=== PATIENT | female | born 2000 | race Two or more races ===

== ENCOUNTER 2024-08-03 09:55 | Observation (INO) | payer MEDICAID, SELFPAY ==
[2024-08-03 10:13] VITALS: BP 110/70; PULSE 92
[2024-08-03 10:14] VITALS: TEMP 37; BMI 24.4
[2024-08-03 10:52] VITALS: BP 110/70; PULSE 92; RESP 18; RESP 99; TEMP 37
== END 2024-08-03 11:00 | disposition home or self-care (01) ==
PROVIDERS: Admitting Provider Nurse Practitioner Women's Health; Visit Provider Nurse Practitioner Women's Health
DX: O26.893 Other specified pregnancy related conditions, third trimester (principal); R25.2 Cramp and spasm; Z3A.37 37 weeks gestation of pregnancy
CPT/HCPCS: 59025; 59899

== ENCOUNTER 2024-08-13 02:35 | Inpatient (IN) | payer MEDICAID, SELFPAY ==
[2024-08-13] VITALS (23 sets, daily range): BP systolic 0–125; BP diastolic 0–87; PULSE 70–92; RESP 16–97; TEMP 36.4–37.2; O2SAT 97–98; BMI 24.5
[2024-08-13] MEDS: OXYTOCIN in NS 20 units 20 UNIT/1,000 ML BAG 125 UNIT IV (04:11)
[2024-08-13] MEDS: METHYLERGONOVINE INJ 0.2 MG/ML VIAL IM (04:17)
[2024-08-13 04:23] LABS: Basophils # (Auto) 0.1 Thou/mm3 (0.0-0.2); Basophils % (Auto) 1 % (0-2.5); Eosinophils # (Auto) 0.1 Thou/mm3 (0.0-0.5); Eosinophils % (Auto) 1 % (0-10); Hematocrit 36.5 % (36.0-46.0); Hemoglobin 12.3 g/dL (12.0-16.0); Immature Granulocytes % (Auto) 1 % (0-0); Immature Granulocytes Auto 0.07 Thou/mm3 (0.00-0.00); Lymphocytes # (Auto) 3.2 Thou/mm3 (1.0-4.8); Lymphocytes % (Auto) 27 % (10-50); Mean Corpuscular HGB Conc 33.7 g/dl (31.0-37.0); Mean Corpuscular Hemoglobin 29.2 pg (25.0-35.0); Mean Corpuscular Volume 87 fL (80-100); Monocytes % (Auto) 9 % (0-12); Neutrophils # (Auto) 7.5 Thou/mm3 (1.8-7.7); Neutrophils % (Auto) 63 % (37-80); Nucleated Red Blood Cell % 0 /100 WBC (0); Platelet Count 270 Thou/mm3 (140-440); RDW Standard Deviation 41.8 fL (36.4-46.3); Red Blood Count 4.21 Miln/mm3 (4.00-5.20)
[2024-08-13 04:51] LABS: Syphilis Nonreactive (Nonreactive)
--- NOTE | 2024-08-13 05:13 | PD.LDHP ---
Documentation for date of: 08/13/24 OB Labor/Induct. HPI History of Present Illness : 2 Para: 1 Term pregnancies: 1 pregnancies: 1 Living children: 1 History of Abortions: Spontaneous and Elective: 1 History of Vaginal deliveries: 1 History of sections: No History of : No History of present illness: Patient presents with regular/painful ctx. No LOF, no vaginal bleeding. Feels normal movement. History of Present Adequate Care: Yes Labs Labs: Negative: Hepatitis B, HIV, Chlamydia, Gonorrhea and Group Beta Strep Review of Systems Review of Systems Narrative Review of Systems: Review of Systems Systems Reviewed: All systems reviewed, normal except as documented Constitutional Constitutional: Denies body ache(s), Denies chills, Denies fever(s) and Denies headache(s) ENT Ears, Nose, Mouth, and Throat: Denies headache(s) and Denies vertigo Cardiovascular Cardiovascular: Denies chest pain, Denies palpitations, Denies dyspnea and Denies syncope Respiratory Respiratory: Denies cough, Denies dyspnea Gastrointestinal Gastrointestinal: Denies nausea and Denies vomiting Neurologic Neurologic: Denies convulsions, Denies headache(s), Denies other visual disturbances, Denies syncope and Denies vertigo Past Medical History Surgical History SURGICAL: Negative Section OTHER SURGICAL HX: denies all Social History SOCIAL: No tobacco/ETOH/illicit drug use Past Medical History Comments PMH COMMENT: benign. allergic to motrin (rash) Meds Home Medications and Allergies Home Medications ?Medication ?Instructions ?Recorded ?Confirmed ?Type folic acid 1 mg tablet 1 mg PO DAILY 05/17/24 08/13/24 History [id number] 1 mg 1 tab PO DAILY 05/17/24 05/17/24 History tablet Allergies Allergy/AdvReac Type Severity Reaction Status Date / Time ibuprofen Allergy Rash Verified 08/13/24 03:12 OB Exam Physical Exam Vital signs: Temp Pulse Resp BP Pulse Ox 98.1 F 72 17 118/82 98 08/13/24 03:56 08/13/24 05:08 08/13/24 02:48 08/13/24 05:08 08/13/24 02:54 Narrative: General: well developed, well nourished, no acute distress, conversant Cardiac: normal heart rate Lungs: breathing without distress Abdomen: soft, gravid, non-tender, no rebound or guarding Extremities: no pain with palpation of calves Detailed Labor and Delivery Exam Dilation (cm): 8 Effacement (%): 80 Cervix position: anterior station: -2 Consistency: soft Presentation: Vertex Membranes: intact monitor accelerations: 15x15 monitor decelerations: None halfway variability: Moderate (11-25) Contraction frequency (min): q3-5 min OB Results Labs 08/13/24 03:00 Labs: Short CBC 08/13/24 Range/Units 03:00 WBC 12.0 H (3.6-11.0) Thou/mm3 Hgb 12.3 (12.0-16.0) g/dL Hct 36.5 (36.0-46.0) % Plt Count 270 (140-440) Thou/mm3 OB Assessment & Plan Assessment and Plan (1) Active labor at term: Status: Acute Assessment and plan: Patient is a 24yo with SIUP at term presenting in active labor. Regular/painful contractions, SCE:8/80/-2. Vitals wnl, benign exam. Reassuring assessment. PMhx/ uncomplicated. Labs significant only for SMA (SMN1) at risk to be a carrier - defer to OBGYN office for further management of this lab finding. Plan: -Admit to L&D -Establish IV, routine labs -CEFM -Clear liquid diet -Configurator/consent re: -GBS status: negative -Anticipate -Safe to proceed
--- NOTE | 2024-08-13 05:14 | PD.LDDELS ---
Data ([facility]) Data Hx Section: No : 3 Para: 1 Term: 0 : 1 : 1 Delivery Data ([facility]) Labor Data Stimulated/Augmented: Yes Method: AROM ROM Date: 08/13/24 ROM Time: 03:32 Rupture Type: AROM Amniotic Fluid: Clear Delivery Data Labor Onset Stage 1 Date: 08/13/24 Labor Onset Stage 1 Time: 00:30 Labor Onset Stage 2 Date: 08/13/24 Labor Onset Stage 2 Time: 04:00 Delivery Date: 08/13/24 Delivery Time: 04:07 Placenta Delivery Date: 08/13/24 Placenta Delivery Time: 04:11 Delivered by: Vaishali Tidwell Delivery nurse: Yudy Kang Other staff at delivery: Nursery Nurse Other staff at delivery: 2nd Nurse Other staff at delivery: RT Other staff at delivery: Sandra Barker Other staff at delivery: Carmita Chadwick Other staff at delivery: mich Delivery Method Delivery: Vaginal Delivery Type: Spontaneous Anesthesia Type Primary Anesthesia: None EBL Estimated blood loss (ml): 200 Umbilical Cord Nuchal Cord: x1 Additional Procedures Kaity is a 24yo [id number] s/p uncomplicated at term after presenting in active labor, delivering at 0407 on 08/13/2024. On presentation, SCE was 8cm. She progressed quickly after AROM to C/C/0 at which point she began pushing. She declined epidural. With good maternal pushing efforts, infant's head delivered OA and restituted ZOEY. Snug nuchal cord reduced. Left anterior shoulder delivered easily followed by posterior shoulder and corpus. Infant had spontaneous cry and was vigorous. Apgars 9/9. Infant placed on maternal abdomen where nose/mouth were suctioned and dried/stimulated. After approximately 1 minute, cord was clamped x2 and cut by FOB. Cord blood collected for typing. With fundal massage and cord traction, placenta delivered spontaneously and intact with 3 vessel centrally inserted cord. Bimanual massage performed and IV pitocin given per protocol with fundus then firm at u-2cm and hemostasis noted. Inspection of perineum and vagina revealed no lacerations. Small trickle of blood, so sweep just within cervix/MARCE performed which retrieved a small amount of clot. 0.2mg IM methergine given with observed hemostasis after. All counts correct x2. Mom and infant were doing well when I left the room. Vaishali Tidwell MD Complications Complications: none Data ([facility]) Data Infant Gender: Male Identification Band Number: [id number] Infant Weight Grams: 2545 1 Minute Total: 9 5 Minute Total: 9
[2024-08-13] MEDS: BENZO/LANO/ALOE (Dermoplast) 60 GM CAN 1 SPRAY TOP (06:28)
[2024-08-13] MEDS: DOCUSATE SOD 100 MG CAPSULE PO ×2 (09:19→20:28)
[2024-08-14 03:57] VITALS: BP 100/65; PULSE 61; RESP 16; TEMP 36.7; O2SAT 97
[2024-08-14 06:24] LABS: Basophils % (Auto) 0 % (0-2.5); Eosinophils # (Auto) 0.2 Thou/mm3 (0.0-0.5); Eosinophils % (Auto) 1 % (0-10); Hematocrit 33.2 % (36.0-46.0); Hemoglobin 11.2 g/dL (12.0-16.0); Immature Granulocytes % (Auto) 0 % (0-0); Immature Granulocytes Auto 0.04 Thou/mm3 (0.00-0.00); Lymphocytes # (Auto) 3.8 Thou/mm3 (1.0-4.8); Lymphocytes % (Auto) 33 % (10-50); Mean Corpuscular HGB Conc 33.7 g/dl (31.0-37.0); Mean Corpuscular Hemoglobin 29.4 pg (25.0-35.0); Mean Corpuscular Volume 87 fL (80-100); Monocytes % (Auto) 8 % (0-12); Neutrophils # (Auto) 6.7 Thou/mm3 (1.8-7.7); Neutrophils % (Auto) 57 % (37-80); Nucleated Red Blood Cell % 0 /100 WBC (0); Platelet Count 218 Thou/mm3 (140-440); RDW Standard Deviation 43.4 fL (36.4-46.3); Red Blood Count 3.81 Miln/mm3 (4.00-5.20); White Blood Count 11.7 Thou/mm3 (3.6-11.0)
[2024-08-14 08:00] VITALS: BP 99/66; PULSE 66; RESP 16; TEMP 36.7; O2SAT 97
[2024-08-14] MEDS: DOCUSATE SOD 100 MG CAPSULE PO (08:21)
--- NOTE | 2024-08-14 09:19 | ESDS_ITS ---
DS: Providers Provider Date of admission: 08/13/24 03:09 Primary care physician: Physician No Primary/Family Admitting Provider: Vaishali Tidwell MD Attending Provider on Admission: Vaishali Tidwell MD Consults: 08/13/24 05:11 Referral Routine Comment: Attending Provider on DC: Vaishali Tidwell MD Discharging Provider: Vaishali Tidwell MD DS: Diagnosis Discharge Diagnosis (1) Active labor at term: Status: Acute Problem List Completed Was Problem List Reviewed/Reconciled?: Yes Summary/Hosp Course Brief History: Patient presents with regular/painful ctx. No LOF, no vaginal bleeding. Feels normal movement. She is now day 1 s/p uncomplicated . She has had an uncomplicated course, meeting all milestones and feels ready for discharge home. She is ambulating without lightheadedness, tolerating regular diet no n/v, spontaneously voiding without issue. She has no chest pain or shortness of breath. No fevers or chills. Minimal, appropriate discomfort. Vitals normal, benign exam. Hemodynamically stable with no evidence of infection. PP Hgb 11.2. Status at Discharge Functional status at discharge: independent ambulation Overall status at discharge: patient is back to baseline Time Spent with Patient Time attestation: Total time spent providing and/or coordinating discharge services: Exam Vital Signs Temp Pulse Resp BP Pulse Ox O2 Del Method 98.0 F 66 16 99/66 97 Room Air 08/14/24 08:00 08/14/24 08:00 08/14/24 08:00 08/14/24 08:00 08/14/24 08:00 08/14/24 08:00 Narrative Exam General: well developed, well nourished, no acute distress, conversant Cardiac: normal heart rate Lungs: breathing without distress Abdomen: soft, post-gravid, non-tender, no rebound or guarding, fundus firm at u-3cm Extremities: no pain with palpation of calves, no edema of BLE Discharge Plan Plan Patient Disposition: HOME (Self Care) Patient condition on transfer: Stable Prescriptions/Referrals Prescriptions/Med Rec: Continued folic acid 1 mg tablet 1 mg PO DAILY Patient Comments: TAKE 1 TABLET BY MOUTH ONCE DAILY [id number] 1 mg Tablet 1 tab PO DAILY Referrals: No Primary/Family,Physician [Primary Care Provider] - Patient/Caregiver Discharge Instructions Discharge Activity: activity as tolerated and other Other Discharge Activity Instructions:: vaginal rest and no heavy lifting more than 10 pounds for 6 weeks Other Discharge Diet Instructions: Regular diet Education Materials: After a Vaginal Print Language: [place] Activity Restrictions/Additional Instructions: Call clinic to schedule visit in 4 weeks. Stand Alone Forms: Veronica Award Info., Patient Portal Info Letter Discharge Order Discharge Orders: Discharge (Routine); Ordered 08/14/24 Ordered By: Vaishali Tidwell Planned Discharge Date 08/14/24
== END 2024-08-14 10:50 | disposition home or self-care (01) | DRG 560 ==
LOC: S4SX 03:13 → S4NX 06:32
PROVIDERS: Admitting Provider Obstetrics & Gynecology; Visit Provider Obstetrics & Gynecology
DX: O69.81X0 Labor and delivery complicated by cord around neck, without compression, not applicable or unspecified (principal); Z37.0 Single live birth; Z88.6 Allergy status to analgesic agent; Z3A.00 Weeks of gestation of pregnancy not specified
CPT/HCPCS: 36415; 59409; 85025; 86780; 86850; 86900; 86901; 94762; J2210; J2590; A9270